=== PATIENT | male | born 1965 | race Caucasian/White ===

== ENCOUNTER 2023-06-24 09:33 | Outpatient (CLI) | payer OTHER, SELFPAY ==
[2023-06-24 09:54] VITALS: PULSE 79; RESP 18; O2SAT 98
[2023-06-24] MEDS: albuterol 2.5 mg/3 mL Neb INHALATION (09:54)
[2023-06-24 09:58] VITALS: PULSE 83
== END 2023-06-24 09:34 | disposition home or self-care (01) ==
LOC: RT 09:39
PROVIDERS: Visit Provider Nurse Practitioner Family
DX: J45.909 Unspecified asthma, uncomplicated (principal)
CPT/HCPCS: 94060; J7613